=== PATIENT | male | born 1995 | race Caucasian/White ===

== ENCOUNTER 2024-10-25 08:13 | Emergency (ER) | payer OTHER ==
[~2024-10-25] VITALS: Ht 175.3 cm; Wt 77.0 kg
[2024-10-25 08:17] VITALS: O2SAT 95
[2024-10-25] MEDS: ONDANSETRON HCL 4MG/2ML INJ IM ONE (10:05)
[2024-10-25] MEDS: DICYCLOMINE HCL 10MG/ML 2ML VIAL IM ONE (10:06)
[2024-10-25] MEDS ORDERED: ONDA-239 PO (10:08)
[2024-10-25 10:29] VITALS: BP 135/90; PULSE 95; RESP 18; TEMP 36.8; O2SAT 97
== END 2024-10-25 10:33 | disposition home or self-care (01) ==
LOC: ER 08:13
DX: F10.129 Alcohol abuse with intoxication, unspecified (principal); Y90.9 Presence of alcohol in blood, level not specified
CPT/HCPCS: 99284; 96372; J0500; J2405